=== PATIENT | female | born 1965 | race Caucasian/White ===

== ENCOUNTER 2016-11-12 07:13 | Observation (INO) | payer BC ==
[~2016-11-12] VITALS: Ht 162.6 cm; Wt 69.3 kg
[~2016-11-12 07:13] MED LIST: EPIPEN ADU0.3 MG/0.3 IM; PEPCID20 MG PO; PREDNISONE20 MG PO; ULTRAM50 MG PO
[2016-11-12 08:00] LABS: HEMATOCRIT 45.5 % (36.0-46.0); MCH 29.9 PG (29.0-34.0); MCHC 33.2 G/DL (30.0-36.0); MCV 90.1 FL (83-99); PLATELET COUNT 344 K/uL (156-360); RBC DIS.WIDTH-CV 13.7 % (11.8-14.6); RBC DIS.WIDTH-SD 45.6 % (39-53); RED BLOOD COUNT 5.05 M/uL (3.80-5.20); WHITE BLOOD COUNT 9.7 K/uL (4.1-10.2)
[2016-11-12 08:21] LABS: CHLORIDE 104 mEq/L (99-109); POTASSIUM 3.7 mEq/L (3.7-5.4); SODIUM 136 mEq/L (136-147)
[2016-11-12 08:23] LABS: GLUCOSE 115 mg/dL (70-99)
[2016-11-12 08:24] LABS: ANION GAP 8 MEQ/L (2-14)
[2016-11-12 08:27] LABS: GFR ESTIMATE (CALCULATED) > 59 mL/min/
[2016-11-12 08:28] LABS: UREA NITROGEN (BUN) 11 mg/dL (9-23)
[2016-11-12 08:31] LABS: TROP-I INTERPRETATION NEGATIVE; TROPONIN-I < 0.01 ng/mL (0.0-0.30)
[2016-11-12 08:33] LABS: ADD MIUA? YES; BILIRUBIN NEGATIVE; BLOOD SMALL; COLOR STRAW ((YELLOW)); GLUCOSE (STRIP) NEGATIVE; KETONES NEGATIVE; LEUKOCYTES NEGATIVE; NITRITE NEGATIVE; PROTEIN (STRIP) NEGATIVE; SPECIFIC GRAVITY 1.006 (1.000-1.030); UROBILINOGEN 0.2 MG/DL (0.2-1.0)
[2016-11-12 08:41] LABS: BACTERIA NONE SEEN /HPF; EPITHELIAL CELLS RARE /HPF; MUCUS NONE SEEN /LPF; RED BLOOD CELLS 0-5 /HPF (0-5); UCUL ADDED? NO; WHITE BLOOD CELLS 0-5 /HPF (0-5)
[2016-11-12] MEDS ORDERED: ALLERGY RELIE15.8 ML BOTH NARES (09:35)
[2016-11-12] MEDS ORDERED: ENDOCET 5-3251 EACH PO (09:35)
[2016-11-12] MEDS ORDERED: ZANTAC300 MG PO (09:36)
[2016-11-12] MEDS ORDERED: OMEPRAZOLE40 M1 PO (09:36)
[2016-11-12] MEDS ORDERED: LORATADINE10 M2 PO (09:36)
[2016-11-12] MEDS ORDERED: [UNRECOGNIZED DRUG - OTHER] PO (10:12)
[2016-11-12 10:17] LABS: HDL CHOLESTEROL 74 MG/DL (Desirable>=50); LDL CHOLESTEROL 158 mg/dL (Desirable<100); NON-HDL CHOLESTEROL 170 mg/dL (Desirable<160); TOTAL CHOLESTEROL 244 mg/dL (Desirable<200); TRIGLYCERIDES 58 MG/DL (Normal: <150)
[2016-11-12 10:53] LABS: Estimated Average Glucose 108 mg/dL (70-123); HEMOGLOBIN A1c (GLYCOHEMOGLOB) 5.4 % HGB (Below 5.7)
[2016-11-12 13:00] VITALS: BP 134/57
[2016-11-12 16:22] VITALS: BP 105/59
[2016-11-12 19:19] VITALS: BP 97/48
[2016-11-12 23:40] VITALS: BP 99/52
[2016-11-13 04:23] VITALS: BP 151/56
[2016-11-13 07:20] VITALS: BP 103/53
[2016-11-13] MEDS ORDERED: RIBOFLAVIN100 MG PO (09:01)
[2016-11-13] MEDS ORDERED: PRAVASTATIN SOD80 MG PO (09:01)
[2016-11-13] MEDS ORDERED: ASPIR-LOW81 MG PO (09:01)
== END 2016-11-13 10:47 | disposition home or self-care (01) ==
LOC: EME 07:13 → EDOF 09:14 → 5WEST 12:23
PROVIDERS: Physician Assistant Medical
DX: G44.82 Headache associated with sexual activity (principal); R42 Dizziness and giddiness; R10.9 Unspecified abdominal pain; K21.9 Gastro-esophageal reflux disease without esophagitis; Z87.891 Personal history of nicotine dependence; Z88.1 Allergy status to other antibiotic agents
CPT/HCPCS: 70450; 70551; 71020; 80048; 80061; 81003; 83036; 84484; 85027; 93005; 93880; 99281; 99285; G0378; J1644

== ENCOUNTER → 2017-01-04 | Outpatient (CLI) | payer BC ==
[~2017-01-04] MED LIST changes: +ALLERGY RELIE15.8 ML BOTH NARES; +ASPIR-LOW81 MG PO; +ENDOCET 5-3251 EACH PO; +LORATADINE10 M2 PO; +OMEPRAZOLE40 M1 PO; +PRAVASTATIN SOD80 MG PO; +RIBOFLAVIN100 MG PO; +ZANTAC300 MG PO; +[UNRECOGNIZED DRUG - OTHER] PO
== END | disposition home or self-care (01) ==
LOC: EKG 07:57
DX: I07.1 Rheumatic tricuspid insufficiency (principal); G44.82 Headache associated with sexual activity
CPT/HCPCS: 93306